=== PATIENT | female | born 1970 | race Caucasian/White ===

== ENCOUNTER 2017-03-23 06:48 | Emergency (ER) | payer SELFPAY ==
[2017-03-23 07:00] VITALS: BP 164/103
--- NOTE | 2017-03-23 07:38 | ERNOTE ---
Lower Extremity HPI - General Lower Extremities Pain: foot: right - ulcer Time Seen by Provider: 03/23/17 07:03 Source: patient Exam Limitations: no limitations - Immun/Allergies/Home Medications Immunizations: IMMUNIZATION HX Immunizations Up to Date Yes History of Influenza Vaccine No Hx Pneumococcal Vaccination No Allergies/Adverse Reactions: Allergies Allergy/AdvReac Type Severity Reaction Status Date / Time Penicillins Allergy Verified 03/23/17 07:00 sulfamethoxazole Allergy Verified 03/23/17 07:00 [From Bactrim] trimethoprim [From Bactrim] Allergy Verified 03/23/17 07:00 Home Medications: HOME MEDICATIONS Nystatin 1 - 2 gm TP BID #60 gm 03/23/17 [Last Taken Unknown] - History of Present Illness Narrative: Pt states her foot began to hurt and the patient found that she has an ulcer on the bottom of her right foot. Occurred: yesterday Method of Injury: Reports: no apparent injury Other Injuries: Reports: none Review of Systems - Review of Systems Constitutional: Absent: recent illness Cardiology: Present: edema - right ankle- just noticed today Gastrointestinal/Abdominal: Present: no symptoms reported Musculoskeletal: Absent: joint pain, joint swelling Neurological: Absent: numbness, tingling Endocrine: Absent: excessive sweating, increased thirst, increased urine Hematologic/Lymphatic: Present: no symptoms reported Psych: Present: no symptoms reported - Patient's Past Medical History Patient History - Medical: Anemia Patient History - Cardiac/Respiratory: No pertinent hx Patient History - Cancer: No Hx of Cancer Patient History - Surgical Procedures: Patient History - Other: None LMP (females 10-50): Menopausal - Family History Mother Family History - Medical: Family History - Cardiac/Respiratory: COPD Father Family History - Medical: - Social History Living Situations: home Abuse History: No History of abuse Psych History: Hx of Depression Smoking Status: Current every day smoker Have you smoked in the past 12 months: Yes Alcohol Use: occasionally Drug Use: none - Immunizations Immunizations Up to Date: Yes Hx Pneumococcal Vaccination: No History of Influenza Vaccine: No Physical Exam - Physical Exam General Appearance: Present: wd/wn, alert, no apparent distress Head Exam: Present: normal inspection, no evidence of injury Eye Exam: Normal inspection: bilateral Respiratory: Present: no respiratory distress, no accessory muscle use Extremity Exam: Present: normal except - - right ankle minimal swelling, 2 cm x 1.5 cm ulcer through callus under 2nd MT head. , normal range of motion. Absent: joint redness Neurological Exam: Present: alert, oriented, normal mood/affect, no motor/ sensory deficits Skin Exam: Present: normal color, other - foot very moist, callus appears soaked. 2x7 cm and 1x6 cm patches of erythema on dorsal foot along 1st and 2nd MC. ED Progress - Vital Signs Vital Signs: Vital Signs 03/23/17 06:57 Temperature 36.3 C L Pulse Rate 99 Respiratory 16 Rate Blood Pressure 164/103 O2 Sat by Pulse 96 Oximetry - Progress/Reassessment Chief Complaint: Foot Injury/Pain Progress Note-Subjective: 03/23/17 07:34 I discussed with the patient about keeping her feet dry, changing socks and wearing different shoes each day. Discussed getting a corn pad that will keep the pressure off the ulcer. Encouraged her to see her PCP as soon as possible for follow up. Departure Clinical Impression: Tinea pedis of right foot Pressure ulcer of foot, stage 2 Qualifiers: Laterality: right Qualified Code(s): L89.892 - Pressure ulcer of other site, stage 2 - Departure Disposition: Home Follow Up Needed Condition: Fair Instructions: Athlete's Foot, [id number] Additional Instructions: Use a pad to keep the pressure off the ulcer on your foot. Use the nystatin powder as directed. Keep your feet dry as much as possible. Follow up with Dr. Garnica as soon as possible Referrals: Debora Garnica MD [Primary Care Provider] - Prescriptions: Nystatin 1 - 2 gm TP BID #60 gm
== END 2017-03-23 07:32 | disposition home or self-care (01) ==
LOC: ER 06:48
DX: B35.3 Tinea pedis (principal); L89.892 Pressure ulcer of other site, stage 2

== ENCOUNTER 2017-04-29 04:26 | Emergency (ER) | payer SELFPAY ==
[2017-04-29] MEDS ORDERED: ALBUTEROL SULFATE 2.5 MG/0.5 ML VIAL.NEB IH ONE ×3 (04:53→05:17)
[2017-04-29] MEDS ORDERED: NORMAL SALINE 1,000 ML IV ONE (04:54)
--- NOTE | 2017-04-29 05:04 | ERNOTE ---
Dizziness ER Record Date of Service: 04/29/17 Presenting Symptoms: dizziness, weakness, other - near syncope Time Seen by Provider: 04/29/17 04:50 Source: patient Immunizations: IMMUNIZATION HX Immunizations Up to Date Yes History of Influenza Vaccine Yes Hx Pneumococcal Vaccination Yes Allergies/Adverse Reactions: Allergies Allergy/AdvReac Type Severity Reaction Status Date / Time Penicillins Allergy Verified 03/23/17 07:00 sulfamethoxazole Allergy Verified 03/23/17 07:00 [From Bactrim] trimethoprim [From Bactrim] Allergy Verified 03/23/17 07:00 Home Medications: HOME MEDICATIONS Nystatin 1 - 2 gm TP BID #60 gm 03/23/17 [Last Taken Unknown] - History of Present Illness Narrative: 46 year old that was feeling very anxious while at work. Some one gave her a Xanax tablet (strength was unknown), had not previously taken the medications. One hour afterward taking the Xanax she felt dizzines and was walking as though she was "drunk". When she exited the building her legs gave out, but remained conscious and had to be held up on either side to assist her to walk. Continues to feel intoxicated and has never taken Xanax previously. Date (Duration): 04/29/17 Time (Timing): 05:00 Timing and Duration: sudden onset, still present Severity: max: severe Severity: currently: severe Associated Symptoms: Absent: vomiting, headache, numbness, light headedness Sense of movement: Present: none - intoxicated Fainted/near fainted while:: Present: standing Decreased ability to stand/walk:: Present: off balance Usually:: Present: walks w/o assistance Modifying Factors - (Improves): Reports: standing position Modifying Factors - (Worsens): Reports: nothing Review of Systems - Review of Systems Constitutional: Present: no symptoms reported EYE: Present: no symptoms reported ENT: Present: no symptoms reported Respiratory: Present: no symptoms reported Cardiology: Present: no symptoms reported Gastrointestinal/Abdominal: Present: no symptoms reported Genitourinary: Present: no symptoms reported Musculoskeletal: Present: no symptoms reported Skin: Present: no symptoms reported Neurological: Present: other - speech is slow Endocrine: Present: no symptoms reported Hematologic/Lymphatic: Present: no symptoms reported Psych: Present: anxiety - Patient's Past Medical History Patient History - Medical: Anemia Patient History - Cardiac/Respiratory: COPD, Hypertension Patient History - Cancer: No Hx of Cancer Patient History - Surgical Procedures: Patient History - Other: None LMP (females 10-50): Menopausal - Family History Mother Family History - Medical: Family History - Cardiac/Respiratory: COPD Father Family History - Medical: - Social History Living Situations: other Abuse History: No History of abuse Psych History: Hx of Depression Smoking Status: Light tobacco smoker Have you smoked in the past 12 months: No Do you dip or chew tobacco: No Alcohol Use: none Drug Use: none - Immunizations Immunizations Up to Date: Yes Hx Pneumococcal Vaccination: Yes History of Influenza Vaccine: Yes Physical Exam - Physical Exam General Appearance: Present: alert Head Exam: Present: normal inspection Eye Exam: Normal inspection: bilateral Ears, Nose, Throat: Present: normal ENT inspection Neck: Present: nontender Respiratory: Present: no respiratory distress Cardiovascular/Chest: Present: no murmur Gastrointestinal/Abdominal: Present: normal bowel sounds Extremity Exam: Present: normal inspection Neurological Exam: Present: alert, oriented, normal mood/affect Skin Exam: Present: normal color ED Progress - Results and Orders Patient's Lab Results:: I have reviewed the patient's lab results. - Vital Signs Patient's Vital Signs:: I have reviewed the patient's vital signs. Vital Signs: Vital Signs 04/29/17 04/29/17 04:31 04:38 Temperature 36.4 C L Pulse Rate 93 93 Respiratory 26 H Rate Blood Pressure 141/95 O2 Sat by Pulse 96 Oximetry - EKG EKG: NSR EKG read: Interp. by me EKG Comments: rate of 92, normal axis - Progress/Reassessment Chief Complaint: Dizziness Progress:: Improved Progress Note-Subjective: 04/29/17 06:50 Feeling less intoxicated at this time. Able to walk to the bathroom and back without assistance. 04/29/17 06:52 Able to walk in the hallway safely without assistance, although slowly. Departure Clinical Impression: Adverse drug reaction - Departure Disposition: Home self-care Condition: Fair Instructions: Drug Toxicity Print Language: Tristanian Additional Instructions: Do not take other peoples medications! Return to the ED as needed.
[2017-04-29 05:25] LABS: Hemoglobin 14.5 gm/dL (12.5-16.0); Mean Cell Volume 83.7 fl (78-100); Mean Corpuscular Hemoglobin 27.6 pg (27-31); Neutrophil # 4.4 K/mm3 (1.3-6.0); Platelet Count 285 K/mm3 (150-450); Red Blood Count 5.26 M/mm3 (4.2-5.4); Red Cell Distribution Width 14.1 % (11.5-14.0); White Blood Count 8.6 K/mm3 (4.0-10.5)
[2017-04-29 05:44] LABS: Anion Gap 12.2 mmol/L (6.8-13.8); BUN/Creatinine Ratio 17.9 (9.0-21.6); Blood Urea Nitrogen 14 mg/dL (3-23); Calcium * 8.9 mg/dL (7.9-10.9); Carbon Dioxide 28.3 mmol/L (24-32.6); Chloride 102 mmol/L (97-106); Estimated Creat Clear 66.6; Glucose * 112 mg/dL (70-110); Potassium 3.5 mmol/L (3.4-4.6); Sodium 139 mmol/L (132-142); Troponin I Less than 0.017 ng/ml (0.00-0.10)
[2017-04-29 06:46] VITALS: BP 129/61
[2017-04-29 06:46] LABS: Cocaine Ur Negative (NEGATIVE); Urine Barbiturate Negative (NEGATIVE); Urine Opiates Negative (NEGATIVE); Urine PCP Negative (NEGATIVE); Urine THC Negative (NEGATIVE)
[2017-04-29 06:47] LABS: Urine Benzodiazepines Positive (NEGATIVE)
== END 2017-04-29 06:58 | disposition home or self-care (01) ==
LOC: ER 04:26
DX: T42.4X1A Poisoning by benzodiazepines, accidental (unintentional), initial encounter (principal); R42 Dizziness and giddiness; Y92.63 Factory as the place of occurrence of the external cause; F17.200 Nicotine dependence, unspecified, uncomplicated
CPT/HCPCS: 36415; 80048; 80307; 84484; 85025; 93005; 94640; 99284; G0481

== ENCOUNTER 2017-07-03 06:33 | Emergency (ER) | payer OTHER ==
--- NOTE | 2017-07-03 06:56 | ERNOTE ---
Upper Extremity HPI - General Extremities Pain Location: forearm: left, wrist: left - pain Time Seen by Provider: 07/03/17 06:50 Source: patient Exam Limitations: no limitations - Immun/Allergies/Home Medications Immunizations: IMMUNIZATION HX Immunizations Up to Date Yes History of Influenza Vaccine Yes Hx Pneumococcal Vaccination Yes Allergies/Adverse Reactions: Allergies Allergy/AdvReac Type Severity Reaction Status Date / Time Penicillins Allergy Verified 07/03/17 06:41 sulfamethoxazole Allergy Verified 07/03/17 06:41 [From Bactrim] trimethoprim [From Bactrim] Allergy Verified 07/03/17 06:41 Home Medications: HOME MEDICATIONS NK [No Home Medication] 07/03/17 [Last Taken Unknown] - History of Present Illness Narrative: forearm pain with radiation down ulna to small finger at times Occurred: yesterday Location of Incident: work Severity: moderate Method of Injury: Reports: twisted - by resident at [place]. Modifying Factors - (Improves): Reports: immobilization Modifying Factors - (Worsens): Reports: movement Other Injuries: Reports: none Review of Systems - Review of Systems Musculoskeletal: Present: See HPI. Absent: back pain, neck pain Skin: Absent: change in color Neurological: Absent: weakness, numbness, tingling - Patient's Past Medical History Patient History - Medical: Anemia Patient History - Cardiac/Respiratory: COPD, Hypertension Patient History - Cancer: No Hx of Cancer Patient History - Surgical Procedures: Patient History - Other: None - Family History Mother Family History - Medical: Family History - Cardiac/Respiratory: COPD Father Family History - Medical: - Social History Living Situations: home Abuse History: No History of abuse Psych History: Hx of Depression Alcohol Use: none Drug Use: none - Immunizations Immunizations Up to Date: Yes Hx Pneumococcal Vaccination: Yes History of Influenza Vaccine: Yes Physical Exam - Physical Exam General Appearance: Present: wd/wn, alert, no apparent distress Neck: Present: normal inspection, supple Respiratory: Present: no respiratory distress, no accessory muscle use Peripheral Pulses: N=norm/S=strong/W=weak/B=bound/A=absent: Radial (L): Normal Back Exam: Present: normal inspection, normal range of motion Extremity Exam: Present: normal except - - tenderness left mid forearm/ulna. Some tenderness distal left ulna but no specific ulnar styloid tenderness Neurological Exam: Present: alert, oriented, normal mood/affect, no motor/ sensory deficits Skin Exam: Present: normal color, warm/dry ED Progress - Vital Signs Vital Signs: Vital Signs 07/03/17 06:36 Temperature 36.7 C Pulse Rate 100 Respiratory 16 Rate Blood Pressure 184/104 O2 Sat by Pulse 95 Oximetry - X-Ray X-Ray #1 X-Ray: wrist Interpretation: Interp. by me X-ray Comments: No fracture or dislocation. X-Ray #2 X-Ray: forearm Interpretation: Interp. by me X-ray Comments: No fracture or dislocation. - Progress/Reassessment Chief Complaint: Wrist Injury/Pain Progress Note-Subjective: 07/03/17 07:18 Pt offered Toradol in ED and Rx of NSAID but she declined and states that "I will just take tylenol". Departure Clinical Impression: Sprain of forearm, left Qualifiers: Encounter type: initial encounter Qualified Code(s): S63.502A - Unspecified sprain of left wrist, initial encounter - Departure Disposition: Home Follow Up Needed Condition: Good Instructions: Cryotherapy, Wrist Pain, [id number] Additional Instructions: follow up with occupational health for evaluation and any necessary treatment. You may work but avoid repetitive or excessive use of left arm.
[2017-07-03 06:58] VITALS: BP 159/104
== END 2017-07-03 07:23 | disposition home or self-care (01) ==
LOC: ER 06:33
DX: W50.2XXA Accidental twist by another person, initial encounter; Y99.0 Civilian activity done for income or pay; S63.502A Unspecified sprain of left wrist, initial encounter